=== PATIENT | female | born 1965 | race Caucasian/White ===

== ENCOUNTER → 2018-11-29 12:26 | Outpatient (CLI) | payer OTHER, SELFPAY ==
[2018-11-29 16:46] LABS: Hep C Virus Ab w/Reflex Quant NEGATIVE s/c (NEGATIVE)
[2018-12-01 13:45] LABS: HSV 1 IgM Screen Negative (Negative); HSV 2 IgM Screen Negative (Negative)
[2018-12-01 15:14] LABS: RPR Screen Nonreactive (Nonreactive)
[2018-12-01 18:39] LABS: HIV Ag/Ab, 4th Gen Nonreactive (Nonreactive)
== END ==
DX: Z11.3 Encounter for screening for infections with a predominantly sexual mode of transmission (principal)
CPT/HCPCS: 36415; 86592; 86694; 86703; 86803

== ENCOUNTER 2024-01-31 18:10 | Emergency (ER) | payer OTHER, MEDICAID, SELFPAY ==
[2024-01-31] VITALS (10 sets, daily range): BP systolic 165–198; BP diastolic 81–106; PULSE 59–78; RESP 17–24; TEMP 36.7; O2SAT 95–98; BMI 31.7
--- NOTE | 2024-01-31 18:37 | DI.CT.S_ITS ---
PROCEDURE: CT CHEST W CON INDICATIONS: 5.5CM RUL LUNG MASS ON CXR TECHNIQUE: After the administration of intravenous contrast, 5 mm thick sections acquired from the pulmonary apices to the posterior costophrenic angles. 1 mm axial lung, 5 mm thick coronal and sagittal reformats and 7 mm axial MIP were acquired. For radiation dose reduction, the following was used: automated exposure control, adjustment of mA and/or kV according to patient size. COMPARISON: [facility], , CHEST 2 VIEW, 09/18/2009, 11:51. FINDINGS: Image quality: Diagnostic. Lower Neck: No enlarged lymph nodes. Thyroid: No thyroid nodules which require sonographic follow up, per consensus guidelines. Axillae: No enlarged lymph nodes. Chest Wall: Unremarkable. Bones: No suspicious osseous lesion. Lungs and Pleura: No pneumothorax or pleural effusions. Right upper lobe mass measuring 4.8 x 3.7 cm, (). Heart: Heart size is normal. No pericardial effusion. Thoracic Vessels: The aorta and pulmonary arteries demonstrate normal size. Mediastinum and Jossie: No enlarged lymph nodes. Esophagus: No wall thickening. No hiatal hernia. Upper Abdomen: Visualized upper abdomen solid organs and bowel loops appear normal. IMPRESSION: 1. Right upper lobe mass measuring 4.8 cm. Suspicious for malignancy. Recommend comparison with prior imaging if available. PET/CT and/or biopsy recommended for further evaluation. 2. No adenopathy. Dictated by: El Patel M.D. on 01/31/2024 at 20:00 Approved by: El Patel M.D. on 01/31/2024 at 20:08
--- NOTE | 2024-01-31 18:39 | ED.CHESTPAIN ---
HPI - Chest Pain General Chief Complaint: Chest Pain Stated Complaint: chest pressure, cough, sore throat,mass on rt lung Time Seen by Provider: 01/31/24 18:16 Source: patient Mode of arrival: Ambulatory Limitations: no limitations History of Present Illness HPI narrative: 58-year-old female with no significant past medical history presents for CT scan of her chest. Patient states that she was being seen by her primary care physician for shoulder pain. An outpatient x-ray obtained yesterday showed a normal rotator cuff, however an incidental right upper lobe mass was found. Since the CT scan machine on [place] was not functioning she was referred to the emergency department for a CT scan. Patient states that she has noticed a nonproductive cough and a sore throat recently, but she attributed this to the weather changing. Triage note reports chest pressure, patient denies this to me. Related Data Previous Rx's Medication Instructions Recorded ondansetron 4 mg disintegrating 4 mg sublingual Q6HP PRN ##20 12/02/17 tablet (Zofran ODT) Allergies Allergy/AdvReac Type Severity Reaction Status Date / Time No Known Allergies Allergy Uncoded 02/28/18 11:48 Review of Systems Review of Systems Narrative: Negative except as noted above Patient History Medical History (Updated 01/31/24 @ 20:44 by Teetee Nelson MD) Menopause Social History Smoking Status: Never smoker Smoking Status: Never smoker alcohol intake frequency: holidays/special occasions only Substance Use Type: does not use Exam Initial Vital Signs Initial Vital Signs: Vital Signs Pulse Rate 78 01/31/24 18:17 Blood Pressure 198/106 H 01/31/24 18:17 Pulse Oximetry 95 01/31/24 18:17 Const: Awake, alert, no acute distress, nontoxic appearing Cardiac: regular rate, regular rhythm RESP: unlabored, clear bilaterally, no wheezing GI: Soft, nontender, nondistended, no rebound, no guarding MSK: Atraumatic, full range of motion, pulses equal Skin: Warm, Dry, intact, no rashes Neuro: AO x3, CN II-XII grossly intact, moves all extremities Course Orders Ordered: ED Orders 01/31/24 18:31 CBC Auto Diff [Complete Blood Count AUTO DIFF] Stat CMP [Comprehensive Metabolic Panel] Stat PT [Prothrombin Time INR] Stat 01/31/24 18:37 CT chest w con Stat EKG-12 Lead Stat Vital Signs Vital signs: Vital Signs - 8 hr 01/31/24 18:17 01/31/24 18:17 01/31/24 18:23 Temperature 98.0 F Pulse Rate 78 74 Respiratory Rate 18 Blood Pressure 198/106 H 198/106 H Pulse Oximetry 95 97 Oxygen Delivery Method Room Air 01/31/24 18:30 01/31/24 18:48 01/31/24 18:48 Temperature Pulse Rate 70 62 Respiratory Rate 23 Blood Pressure 167/85 H Pulse Oximetry 95 97 Oxygen Delivery Method Room Air 01/31/24 19:27 01/31/24 19:30 01/31/24 20:21 Temperature Pulse Rate 66 63 Respiratory Rate 18 17 Blood Pressure 184/95 H Pulse Oximetry 98 97 Oxygen Delivery Method 01/31/24 20:21 01/31/24 20:30 01/31/24 20:33 Temperature Pulse Rate 67 61 Respiratory Rate 19 22 Blood Pressure 165/81 H Pulse Oximetry 97 98 Oxygen Delivery Method Room Air Room Air 01/31/24 20:33 01/31/24 21:00 Temperature Pulse Rate 59 L 70 Respiratory Rate 24 Blood Pressure Pulse Oximetry 98 Oxygen Delivery Method Room Air MDM - Chest Pain Differential Diagnosis Differential diagnosis: Likely fracture of rib, pneumothorax and stable angina Lab Data 01/31/24 18:31 01/31/24 18:31 Labs: Lab Results 01/31/24 Range/Units 18:31 WBC 9.4 (4.5-11.0) X10^3/uL RBC 4.47 (4.0-5.2) X10^6/uL Hgb 13.8 (12.0-16.0) g/dL Hct 40.4 (36-46) % MCV 90.5 (80-100) fL MCH 30.9 (26-34) PG MCHC 34.2 (30-36) % RDW 12.3 (11.6-14.8) % Plt Count 335 (150-400) X10^3/uL Neut % (Auto) 53.6 (50-75) % Lymph % (Auto) 30.4 (25-40) % [place] % (Auto) 9.2 (3-14) % Eos % (Auto) 5.0 H (2-4) % Baso % (Auto) 1.8 (0-2) % Neut # (Auto) 5000 (3923-5233) /uL Lymph # (Auto) 2800 (0884-4207) /uL [place] # (Auto) 900 (0-900) /uL Eos # (Auto) 500 H (0-450) /uL Baso # (Auto) 200 H (0-100) /uL PT 10.7 (9.4-12.5) SECONDS INR 0.9 (0.9-1.3) Sodium 140 (137-145) mmol/L Potassium 3.8 (3.4-5.1) mmol/L Chloride 107 (98-107) mmol/L Carbon Dioxide 26 (22-32) mmol/L BUN 19 H (7-17) mg/dL Creatinine 0.87 (0.52-1.04) mg/dL Estimated GFR > 60 (>60) mL/min BUN/Creatinine Ratio 21.8 (6-22) Glucose 95 (70-100) mg/dL Calcium 9.8 (8.4-10.2) mg/dL Total Bilirubin 0.6 (0.2-1.3) mg/dL AST 34 (14-36) IU/L ALT 36 H (<35) IU/L Alkaline Phosphatase 74 (38-126) U/L Total Protein 7.5 (6.3-8.2) g/dL Albumin 4.3 (3.5-5.0) g/dL Globulin 3.2 (1.7-4.1) g/dL Albumin/Globulin Ratio 1.3 (1.0-2.8) Imaging Data CT scan - chest: Radiologist's Impression: ADDENDUMThis report includes an Addendum and supersedes previous reports for this exam. PROCEDURE: CT CHEST W CON INDICATIONS: 5.5CM RUL LUNG MASS ON CXR TECHNIQUE: After the administration of intravenous contrast, 5 mm thick sections acquired from the pulmonary apices to the posterior costophrenic angles. 1 mm axial lung, 5 mm thick coronal and sagittal reformats and 7 mm axial MIP were acquired. For radiation dose reduction, the following was used: automated exposure control, adjustment of mA and/or kV according to patient size. COMPARISON: [facility], , CHEST 2 VIEW, 09/18/2009, 11:51. FINDINGS: Image quality: Diagnostic. Lower Neck: No enlarged lymph nodes. Thyroid: No thyroid nodules which require sonographic follow up, per consensus guidelines. Axillae: No enlarged lymph nodes. Chest Wall: Unremarkable. Bones: No suspicious osseous lesion. Lungs and Pleura: No pneumothorax or pleural effusions. Right upper lobe mass measuring 4.8 x 3.7 cm, (). Heart: Heart size is normal. No pericardial effusion. Thoracic Vessels: The aorta and pulmonary arteries demonstrate normal size. Mediastinum and Jossie: No enlarged lymph nodes. Esophagus: No wall thickening. No hiatal hernia. Upper Abdomen: Visualized upper abdomen solid organs and bowel loops appear normal. IMPRESSION: 1. Right upper lobe mass measuring 4.8 cm. Suspicious for malignancy. Recommend comparison with prior imaging if available. PET/CT and/or biopsy recommended for further evaluation. 2. No adenopathy. Dictated by: El Patel M.D. on 01/31/2024 at 20:00 Approved by: El Patel M.D. on 01/31/2024 at 20:08 ADDENDUM: Comment: Findings were discussed with Teetee Nelson at 8:32 p.m. Dictated by: El Patel M.D. on 01/31/2024 at 20:31 Approved by: El Patel M.D. on 01/31/2024 at 20:34 ECG Data Interpretation: Normal sinus rhythm, rate 65 beats per minute, normal axis, normal intervals, no ST T wave changes MDM Narrative Medical decision making narrative: Well-appearing patient presenting so that she may get a CT scan of incidentally found large right-sided pulmonary mass. Patient reports intermittent nonproductive cough and chest symptoms that she states happened every year around this time that the weather changes, but otherwise has not felt any abnormal symptoms. Laboratory work and CT scan ordered. Laboratory work is reviewed, unremarkable. CT scan of the chest confirms a 4.8 cm right upper lobe mass that is very suspicious for malignancy. Comparison with prior imaging is recommended, however there are no available previous scans in our system. Patient has her friend Myra with her at bedside. I explained results of all lab and imaging at bedside. I explained that a diagnosis of cancer could not be made without a biopsy but the lesion is very concerning for a malignant process. Patient requested a copy of her lab and CT reports so so that she can take them to her primary care doctor. I also referred patient to pulmonology. ED return precautions discussed at bedside. Patient expressed understanding of the plan and is in agreement at this time. All questions answered at the time of discharge. Discharge Plan Departure Patient Disposition: Home Clinical Impression: Mass of upper lobe of right lung Instructions: DI for Pulmonary Nodule Activity Restrictions/Additional Instructions: Your CT shows that you have a right-sided lung mass. Further testing including biopsy is needed before an official diagnosis can be made, it was extremely important that you follow up with your primary care doctor as well as a lung doctor for further investigation of this mass. Prescriptions: No Action ondansetron [Zofran ODT] 4 MG tablet,disintegrating 4 mg Sublingual Q6HP PRNQty: 20 0RF Referrals: Lien Kumar DO [Physician] - Kings Lu MD [Physician] - Miscellaneous,MD Emile [Primary Care Provider] - El Fortune MD [Physician] - Neo Gaines MD [Physician] - Stand Alone Forms: Patient Portal/API
[2024-01-31 18:50] LABS: Add Manual Diff / Slide Review NO; Basophils Absolute Auto 200 /uL (0-100); Basophils Percent Auto 1.8 % (0-2); Eosinophils Absolute Auto 500 /uL (0-450); Hematocrit 40.4 % (36-46); Hemoglobin 13.8 g/dL (12.0-16.0); INR 0.9 (0.9-1.3); Lymphocytes Absolute Auto 2800 /uL (1100-4500); Lymphocytes Percent Auto 30.4 % (25-40); Mean Corpuscular HGB Conc 34.2 % (30-36); Mean Corpuscular Hemoglobin 30.9 PG (26-34); Mean Corpuscular Volume 90.5 fL (80-100); Monocytes Absolute Auto 900 /uL (0-900); Monocytes Percent Auto 9.2 % (3-14); Neutrophils Absolute Auto 5000 /uL (1500-7000); Neutrophils Percent Auto 53.6 % (50-75); Platelet Count 335 X10^3/uL (150-400); Prothrombin Time 10.7 SECONDS (9.4-12.5); Red Blood Cell Count 4.47 X10^6/uL (4.0-5.2); Red Cell Distribution Width 12.3 % (11.6-14.8); White Blood Cell Count 9.4 X10^3/uL (4.5-11.0)
[2024-01-31 18:55] LABS: Alanine Aminotransferase 36 IU/L (<35); Albumin 4.3 g/dL (3.5-5.0); Albumin Globulin Ratio 1.3 (1.0-2.8); Alkaline Phosphatase 74 U/L (38-126); Aspartate Aminotransferase 34 IU/L (14-36); BUN Creatinine Ratio 21.8 (6-22); Bilirubin Total 0.6 mg/dL (0.2-1.3); Blood Urea Nitrogen 19 mg/dL (7-17); Calcium 9.8 mg/dL (8.4-10.2); Carbon Dioxide 26 mmol/L (22-32); Chloride 107 mmol/L (98-107); Estimated Glomerular Filt Rate > 60 mL/min (>60); Globulin 3.2 g/dL (1.7-4.1); Glucose 95 mg/dL (70-100); HEMOLYSIS < 15 (0-50); Potassium 3.8 mmol/L (3.4-5.1); Sodium 140 mmol/L (137-145); Total Protein 7.5 g/dL (6.3-8.2)
== END 2024-01-31 21:11 | disposition home or self-care (01) ==
PROVIDERS: Emergency Provider Emergency Medicine
DX: R91.8 Other nonspecific abnormal finding of lung field (principal); J02.9 Acute pharyngitis, unspecified; R05.9 Cough, unspecified
CPT/HCPCS: 71260; 80053; 85025; 85610; 93005; 93010; 99281; 99284; Q9967

== ENCOUNTER → 2025-09-08 12:00 | Outpatient (CLI) | payer OTHER, SELFPAY ==
[2025-09-08 12:49] LABS: Blood Urea Nitrogen 21 mg/dL (7-17); Calcium 9.6 mg/dL (8.4-10.2); Carbon Dioxide 25 mmol/L (22-32); Chloride 103 mmol/L (98-107); Estimated Glomerular Filt Rate > 60 mL/min (>60); Glucose 87 mg/dL (70-99); HEMOLYSIS < 15 (0-50); Potassium 4.7 mmol/L (3.4-5.1); Sodium 137 mmol/L (137-145)
== END ==
PROVIDERS: PCP Internal Medicine; Referring Provider Internal Medicine; Visit Provider Internal Medicine
DX: I10 Essential (primary) hypertension (principal)
CPT/HCPCS: 36415; 80048